=== PATIENT | male | born 1980 | race Caucasian/White ===

== ENCOUNTER 2021-03-19 13:46 | Inpatient (IN) | payer OTHER ==
[2021-03-19] MEDS ORDERED: MAGNESIUM HYDROX 2400MG/30ML ORAL SUSPENSION 30 ML CUP PO PRN (18:07)
[2021-03-19] MEDS ORDERED: IBUPROFEN 400 MG TABLET (FP) PO PRN (18:07)
[2021-03-19] MEDS ORDERED: BISMUTH SUBSALICYLATE 524 MG/30 ML PO PRN (18:07)
[2021-03-19] MEDS ORDERED: ACETAMINOPHEN 325 MG TABLET (FP) PO PRN ×2 (18:07)
[2021-03-19] MEDS ORDERED: METHOCARBAMOL 500 MG TABLET PO PRN (18:07)
[2021-03-19] MEDS ORDERED: hydrOXYzine PAMOATE 25 MG CAPSULE (FP) PO PRN (18:07)
[2021-03-19] MEDS ORDERED: MAG HYDROX/AL HYDROX/SIMETH 30 ML UNIT-DOSE CUP PO PRN (18:07)
[2021-03-19] MEDS ORDERED: MAGNESIUM CITRATE 300 ML BOTTLE PO PRN (18:07)
[2021-03-19] MEDS ORDERED: MENTHOL/PHENOL 1 EACH UD MM PRN (18:07)
[2021-03-19] MEDS ORDERED: ONDANSETRON *ODT* 4 MG TABLET SL PRN (18:07)
[2021-03-19] MEDS ORDERED: LORazepam 2 MG TABLET PO ONE (19:30)
[2021-03-19 19:53] VITALS: BMI 20.9
[2021-03-19] MEDS: LORazepam 2 MG TABLET PO SCH (22:22)
[2021-03-19] MEDS: THIAMINE HCL 100 MG TABLET (FP) PO SCH (22:22)
[2021-03-19] MEDS: MELATONIN 5 MG TABLETS PO SCH (22:22)
[2021-03-20] MEDS: LORazepam 2 MG TABLET PO SCH ×4 (05:36→22:16)
[2021-03-20] MEDS ORDERED: methaDONE HCL 40 MG DISPERSABLE TABLET PO ONE (06:00)
[2021-03-20] MEDS: NICOTINE 14 MG/24 HOURS TOPICAL PATCH TD SCH (10:35)
[2021-03-20] MEDS: PRENATAL VITAMINS W/ FOLIC ACID TABLET (FP) PO SCH (10:35)
[2021-03-20] MEDS: NICOTINE POLACRILEX 2 MG GUM BUC PRN (10:38)
[2021-03-20 11:09] LABS: CALCIUM 8.4 mg/dL (8.5-10.1)
[2021-03-20 11:10] LABS: ALBUMIN 3.3 g/dl (3.4-5.0); BLOOD UREA NITROGEN 9.4 mg/dL (7-18)
[2021-03-20 11:11] LABS: HEMATOCRIT 41.3 % (35.4-49); HEMOGLOBIN 13.5 GM/dL (11.7-16.9); MCH 27.8 pg (25.7-33.7); MCHC 32.8 g/dl (32.0-35.9); MEAN CELL VOLUME 84.7 fl (80-96); MEAN PLT VOLUME 8.3 fl (7.5-11.1); PLATELET COUNT 223 10^3/uL (134-434); RBC 4.87 M/mm3 (4.00-5.60); RDW 15.3 % (11.9-15.9); WHITE BLOOD COUNT 3.7 K/mm3 (4.0-10.0)
[2021-03-20 11:13] LABS: CREATININE 0.8 mg/dL (0.55-1.3)
[2021-03-20 11:14] LABS: BILIRUBIN,TOTAL 0.4 mg/dL (0.2-1); TOT PROT 6.5 g/dl (6.4-8.2)
[2021-03-20] MEDS: LORazepam 1 MG TABLET PO PRN (12:35)
[2021-03-20] MEDS: THIAMINE HCL 100 MG TABLET (FP) PO SCH (22:16)
[2021-03-20] MEDS: MELATONIN 5 MG TABLETS PO SCH (22:16)
[2021-03-21] MEDS: LORazepam 1 MG TABLET PO SCH ×4 (06:13→22:33)
[2021-03-21] MEDS ORDERED: methaDONE HCL 10 MG TABLET PO ONE (08:59)
[2021-03-21] MEDS ORDERED: methaDONE HCL 40 MG DISPERSABLE TABLET ONE (09:22)
[2021-03-21] MEDS ORDERED: methaDONE HCL 10 MG TABLET ONE (09:22)
[2021-03-21] MEDS: PRENATAL VITAMINS W/ FOLIC ACID TABLET (FP) PO SCH (10:14)
[2021-03-21] MEDS: NICOTINE 14 MG/24 HOURS TOPICAL PATCH TD SCH (10:14)
[2021-03-21] MEDS: NICOTINE POLACRILEX 2 MG GUM BUC PRN ×2 (10:15→13:23)
[2021-03-21] MEDS ORDERED: COVID-19 VAC,AD26(JANSSEN)/PF 0.5 ML IM ONE (11:00)
[2021-03-21] MEDS: LORazepam 1 MG TABLET PO PRN ×2 (13:23→20:51)
[2021-03-21] MEDS: THIAMINE HCL 100 MG TABLET (FP) PO SCH (22:33)
[2021-03-21] MEDS: MELATONIN 5 MG TABLETS PO SCH (22:33)
[2021-03-22] MEDS ORDERED: methaDONE HCL 10 MG TABLET ONE (04:59)
[2021-03-22] MEDS ORDERED: methaDONE HCL 40 MG DISPERSABLE TABLET ONE (05:00)
[2021-03-22] MEDS: LORazepam 0.5 MG TABLET PO SCH ×4 (05:50→22:10)
[2021-03-22] MEDS: NICOTINE POLACRILEX 2 MG GUM BUC PRN ×2 (05:53→10:24)
[2021-03-22] MEDS ORDERED: methaDONE HCL 40 MG DISPERSABLE TABLET PO SCH (06:00)
[2021-03-22] MEDS: NICOTINE 14 MG/24 HOURS TOPICAL PATCH TD SCH (10:23)
[2021-03-22] MEDS: PRENATAL VITAMINS W/ FOLIC ACID TABLET (FP) PO SCH (10:23)
[2021-03-22] MEDS: LORazepam 0.5 MG TABLET PO PRN ×2 (12:07→19:40)
[2021-03-22] MEDS: MELATONIN 5 MG TABLETS PO SCH (22:10)
[2021-03-22] MEDS: THIAMINE HCL 100 MG TABLET (FP) PO SCH (22:10)
[2021-03-23] MEDS ORDERED: methaDONE HCL 40 MG DISPERSABLE TABLET ONE (04:17)
[2021-03-23] MEDS ORDERED: methaDONE HCL 10 MG TABLET ONE (04:17)
[2021-03-23] MEDS ORDERED: LORazepam 0.5 MG TABLET PO ONE (05:00)
[2021-03-23 09:02] VITALS: BP 91/63; PULSE 79; TEMP 97.1
[2021-03-23] MEDS: PRENATAL VITAMINS W/ FOLIC ACID TABLET (FP) PO SCH (10:30)
[2021-03-23] MEDS: NICOTINE 14 MG/24 HOURS TOPICAL PATCH TD SCH (10:30)
[2021-03-23 10:32] LABS: SGOT/AST 242 U/L (15-37); SGPT/ALT 406 U/L (13-61)
== END 2021-03-23 12:04 | disposition other institution (70) | DRG 773 ==
LOC: YASAS 13:46 → Y3N 19:09
PROVIDERS: ADMIT Allergy & Immunology; ATTEND Allergy & Immunology
PROC: HZ2ZZZZ Detoxification Services for Substance Abuse Treatment (ICD-10-PCS; principal; 2021-03-19)
DX: F13.230 Sedative, hypnotic or anxiolytic dependence with withdrawal, uncomplicated (principal); F11.20 Opioid dependence, uncomplicated; F14.10 Cocaine abuse, uncomplicated; F17.210 Nicotine dependence, cigarettes, uncomplicated; R74.01 Elevation of levels of liver transaminase levels
CPT/HCPCS: 0031A; 36415; 80053; 84450; 84460; 85027; 86780; 91303; 93005; 93010; C9803; U0003; U0005

== ENCOUNTER 2021-03-23 12:13 | Inpatient (IN) | payer OTHER ==
[2021-03-23] MEDS ORDERED: MAGNESIUM HYDROX 2400MG/30ML ORAL SUSPENSION 30 ML CUP PO PRN (13:10)
[2021-03-23] MEDS ORDERED: MENTHOL/PHENOL 1 EACH UD MM PRN (13:10)
[2021-03-23] MEDS ORDERED: MAG HYDROX/AL HYDROX/SIMETH 30 ML UNIT-DOSE CUP PO PRN (13:10)
[2021-03-23] MEDS ORDERED: guaiFENesin 200 MG/10 ML 10 ML UNIT-DOSE CUPS PO PRN (13:10)
[2021-03-23] MEDS ORDERED: IBUPROFEN 400 MG TABLET (FP) PO PRN (13:10)
[2021-03-23] MEDS ORDERED: ACETAMINOPHEN 325 MG TABLET (FP) PO PRN (13:10)
[2021-03-23] MEDS ORDERED: MAGNESIUM CITRATE 300 ML BOTTLE PO PRN (13:10)
[2021-03-23] MEDS ORDERED: LOPERAMIDE HCL 2 MG CAPSULE PO PRN (13:10)
[2021-03-23] MEDS ORDERED: P-EPHED 60MG/TRIPROLIDI 2.5MG TABLET PO PRN (13:10)
[2021-03-23] MEDS: MELATONIN 5 MG TABLETS PO SCH (21:41)
[2021-03-23] MEDS: THIAMINE HCL 100 MG TABLET (FP) PO SCH (21:41)
[2021-03-24] MEDS ORDERED: methaDONE HCL 10 MG TABLET PO SCH (06:00)
[2021-03-24] MEDS ORDERED: methaDONE HCL 10 MG TABLET ONE (06:15)
[2021-03-24] MEDS ORDERED: methaDONE HCL 40 MG DISPERSABLE TABLET ONE (06:15)
[2021-03-24] MEDS: NICOTINE POLACRILEX 2 MG GUM BUC PRN ×2 (08:57→17:14)
[2021-03-24] MEDS: NICOTINE 14 MG/24 HOURS TOPICAL PATCH TD SCH (09:23)
[2021-03-24] MEDS: PRENATAL VITAMINS W/ FOLIC ACID TABLET (FP) PO SCH (09:23)
[2021-03-24] MEDS ORDERED: NICOTINE 7 MG/24 HOURS TOPICAL PATCH TD SCH (10:00)
[2021-03-24] MEDS: THIAMINE HCL 100 MG TABLET (FP) PO SCH (21:32)
[2021-03-24] MEDS: MELATONIN 5 MG TABLETS PO SCH (21:32)
[2021-03-24] MEDS: hydrOXYzine PAMOATE 25 MG CAPSULE (FP) PO PRN (21:32)
[2021-03-25] MEDS ORDERED: methaDONE HCL 10 MG TABLET ONE (06:25)
[2021-03-25] MEDS ORDERED: methaDONE HCL 40 MG DISPERSABLE TABLET ONE (06:26)
[2021-03-25] MEDS: NICOTINE POLACRILEX 2 MG GUM BUC PRN ×2 (06:41→09:44)
[2021-03-25] MEDS: NICOTINE 14 MG/24 HOURS TOPICAL PATCH TD SCH (09:43)
[2021-03-25] MEDS: PRENATAL VITAMINS W/ FOLIC ACID TABLET (FP) PO SCH (09:44)
[2021-03-25] MEDS: hydrOXYzine PAMOATE 25 MG CAPSULE (FP) PO PRN (09:45)
[2021-03-25] MEDS: MELATONIN 5 MG TABLETS PO SCH (23:30)
[2021-03-25] MEDS: THIAMINE HCL 100 MG TABLET (FP) PO SCH (23:30)
[2021-03-26] MEDS ORDERED: methaDONE HCL 10 MG TABLET ONE (05:46)
[2021-03-26] MEDS ORDERED: methaDONE HCL 40 MG DISPERSABLE TABLET ONE (05:47)
[2021-03-26] MEDS: NICOTINE POLACRILEX 2 MG GUM BUC PRN ×3 (06:04→19:04)
[2021-03-26] MEDS: NICOTINE 14 MG/24 HOURS TOPICAL PATCH TD SCH (09:56)
[2021-03-26] MEDS: PRENATAL VITAMINS W/ FOLIC ACID TABLET (FP) PO SCH (09:56)
[2021-03-26] MEDS: MELATONIN 5 MG TABLETS PO SCH (22:49)
[2021-03-26] MEDS: THIAMINE HCL 100 MG TABLET (FP) PO SCH (22:49)
[2021-03-27] MEDS ORDERED: methaDONE HCL 40 MG DISPERSABLE TABLET ONE (03:46)
[2021-03-27] MEDS ORDERED: methaDONE HCL 10 MG TABLET ONE (03:46)
[2021-03-27] MEDS: NICOTINE POLACRILEX 2 MG GUM BUC PRN ×5 (06:15→21:20)
[2021-03-27] MEDS: hydrOXYzine PAMOATE 25 MG CAPSULE (FP) PO PRN ×2 (06:16→17:30)
[2021-03-27] MEDS: NICOTINE 14 MG/24 HOURS TOPICAL PATCH TD SCH (09:45)
[2021-03-27] MEDS: PRENATAL VITAMINS W/ FOLIC ACID TABLET (FP) PO SCH (09:45)
[2021-03-27] MEDS: THIAMINE HCL 100 MG TABLET (FP) PO SCH (21:19)
[2021-03-27] MEDS: MELATONIN 5 MG TABLETS PO SCH (21:19)
[2021-03-28] MEDS ORDERED: methaDONE HCL 10 MG TABLET ONE (03:17)
[2021-03-28] MEDS ORDERED: methaDONE HCL 40 MG DISPERSABLE TABLET ONE (03:18)
[2021-03-28] MEDS: PRENATAL VITAMINS W/ FOLIC ACID TABLET (FP) PO SCH (09:59)
[2021-03-28] MEDS: NICOTINE 14 MG/24 HOURS TOPICAL PATCH TD SCH (09:59)
[2021-03-28] MEDS: hydrOXYzine PAMOATE 25 MG CAPSULE (FP) PO PRN (10:00)
[2021-03-28] MEDS: NICOTINE POLACRILEX 2 MG GUM BUC PRN ×2 (10:01→21:54)
[2021-03-28] MEDS: MELATONIN 5 MG TABLETS PO SCH (21:54)
[2021-03-28] MEDS: THIAMINE HCL 100 MG TABLET (FP) PO SCH (21:54)
[2021-03-29] MEDS ORDERED: methaDONE HCL 10 MG TABLET ONE (03:26)
[2021-03-29] MEDS ORDERED: methaDONE HCL 40 MG DISPERSABLE TABLET ONE (03:27)
[2021-03-29] MEDS: NICOTINE 14 MG/24 HOURS TOPICAL PATCH TD SCH (11:51)
[2021-03-29] MEDS: PRENATAL VITAMINS W/ FOLIC ACID TABLET (FP) PO SCH (11:51)
[2021-03-29] MEDS: hydrOXYzine PAMOATE 25 MG CAPSULE (FP) PO PRN ×2 (13:05→21:49)
[2021-03-29] MEDS: NICOTINE POLACRILEX 2 MG GUM BUC PRN ×3 (13:06→21:48)
[2021-03-29] MEDS: THIAMINE HCL 100 MG TABLET (FP) PO SCH (21:48)
[2021-03-29] MEDS: MELATONIN 5 MG TABLETS PO SCH (21:48)
[2021-03-30] MEDS ORDERED: methaDONE HCL 10 MG TABLET ONE (03:37)
[2021-03-30] MEDS ORDERED: methaDONE HCL 40 MG DISPERSABLE TABLET ONE (03:37)
[2021-03-30] MEDS: PRENATAL VITAMINS W/ FOLIC ACID TABLET (FP) PO SCH (09:34)
[2021-03-30] MEDS: hydrOXYzine PAMOATE 25 MG CAPSULE (FP) PO PRN (09:35)
[2021-03-30] MEDS: NICOTINE POLACRILEX 2 MG GUM BUC PRN ×2 (09:36→14:16)
[2021-03-30] MEDS: NICOTINE 14 MG/24 HOURS TOPICAL PATCH TD SCH (09:36)
[2021-03-30] MEDS: MELATONIN 5 MG TABLETS PO SCH (22:36)
[2021-03-30] MEDS: THIAMINE HCL 100 MG TABLET (FP) PO SCH (22:37)
[2021-03-31] MEDS ORDERED: methaDONE HCL 40 MG DISPERSABLE TABLET ONE (06:08)
[2021-03-31] MEDS ORDERED: methaDONE HCL 10 MG TABLET ONE (06:08)
[2021-03-31 06:57] VITALS: BP 120/68; PULSE 57; TEMP 97.1
[2021-03-31] MEDS: NICOTINE POLACRILEX 2 MG GUM BUC PRN (08:07)
[2021-03-31] MEDS: NICOTINE 14 MG/24 HOURS TOPICAL PATCH TD SCH (09:22)
[2021-03-31] MEDS: PRENATAL VITAMINS W/ FOLIC ACID TABLET (FP) PO SCH (09:22)
== END 2021-03-31 09:30 | disposition home or self-care (01) | DRG 772 ==
LOC: YASAS 12:13 → Y3E 12:14
PROVIDERS: ADMIT Allergy & Immunology; ATTEND Allergy & Immunology
PROC: HZ42ZZZ Group Counseling for Substance Abuse Treatment, Cognitive-Behavioral (ICD-10-PCS; principal; 2021-03-23)
DX: F11.20 Opioid dependence, uncomplicated (principal); F14.20 Cocaine dependence, uncomplicated; F13.20 Sedative, hypnotic or anxiolytic dependence, uncomplicated; F17.210 Nicotine dependence, cigarettes, uncomplicated; F41.9 Anxiety disorder, unspecified

== ENCOUNTER 2021-08-15 16:45 | Inpatient (IN) | payer OTHER ==
[2021-08-15 18:39] VITALS: BMI 25.9
[2021-08-15] MEDS ORDERED: BISMUTH SUBSALICYLATE 524 MG/30 ML PO PRN (20:21)
[2021-08-15] MEDS ORDERED: MAGNESIUM CITRATE 300 ML BOTTLE PO PRN (20:21)
[2021-08-15] MEDS ORDERED: MAGNESIUM HYDROX 2400MG/30ML ORAL SUSPENSION 30 ML CUP PO PRN (20:21)
[2021-08-15] MEDS ORDERED: MAG HYDROX/AL HYDROX/SIMETH 30 ML UNIT-DOSE CUP PO PRN (20:21)
[2021-08-15] MEDS ORDERED: NICOTINE 10 MG CARTRIDGE (INHALER) IH PRN (20:21)
[2021-08-15] MEDS ORDERED: ACETAMINOPHEN 325 MG TABLET (FP) PO PRN ×2 (20:21)
[2021-08-15] MEDS ORDERED: METHOCARBAMOL 500 MG TABLET PO PRN (20:21)
[2021-08-15] MEDS ORDERED: MENTHOL/PHENOL 1 EACH UD MM PRN (20:21)
[2021-08-15] MEDS ORDERED: ONDANSETRON *ODT* 4 MG TABLET SL PRN (20:21)
[2021-08-15] MEDS ORDERED: IBUPROFEN 400 MG TABLET (FP) PO PRN (20:21)
[2021-08-15] MEDS: THIAMINE HCL 100 MG TABLET (FP) PO SCH (23:09)
[2021-08-15] MEDS: BACITRACIN 0.9 GM PACKET TP SCH (23:09)
[2021-08-15] MEDS: MELATONIN 5 MG TABLETS PO SCH (23:09)
[2021-08-16] MEDS: diazePAM 5 MG TABLET PO PRN (07:40)
[2021-08-16] MEDS ORDERED: diazePAM 5 MG TABLET PO PRN (09:28)
[2021-08-16] MEDS: methaDONE HCL 40 MG DISPERSABLE TABLET PO SCH (10:26)
[2021-08-16] MEDS: BACITRACIN 0.9 GM PACKET TP SCH ×2 (10:26→23:05)
[2021-08-16] MEDS: PRENATAL VITAMINS W/ FOLIC ACID TABLET (FP) PO SCH (10:26)
[2021-08-16] MEDS: diazePAM 5 MG TABLET PO SCH ×3 (10:27→23:05)
[2021-08-16 10:36] LABS: ALBUMIN 3.6 g/dl (3.4-5.0); BLOOD UREA NITROGEN 13.3 mg/dL (7-18); CALCIUM 8.9 mg/dL (8.5-10.1); HEMATOCRIT 40.4 % (35.4-49); HEMOGLOBIN 13.8 GM/dL (11.7-16.9); MCH 29.9 pg (25.7-33.7); MCHC 34.3 g/dl (32.0-35.9); MEAN CELL VOLUME 87.1 fl (80-96); MEAN PLT VOLUME 8.5 fl (7.5-11.1); PLATELET COUNT 223 10^3/uL (134-434); RBC 4.63 M/mm3 (4.00-5.60); RDW 13.4 % (11.9-15.9); WHITE BLOOD COUNT 4.6 K/mm3 (4.0-10.0)
[2021-08-16 10:39] LABS: CREATININE 0.7 mg/dL (0.55-1.3)
[2021-08-16 10:41] LABS: BILIRUBIN,TOTAL 0.5 mg/dL (0.2-1)
[2021-08-16] MEDS: THIAMINE HCL 100 MG TABLET (FP) PO SCH (23:05)
[2021-08-16] MEDS: MELATONIN 5 MG TABLETS PO SCH (23:05)
[2021-08-17] MEDS: methaDONE HCL 40 MG DISPERSABLE TABLET PO SCH (05:38)
[2021-08-17] MEDS: diazePAM 5 MG TABLET PO SCH ×4 (05:38→22:02)
[2021-08-17] MEDS: PRENATAL VITAMINS W/ FOLIC ACID TABLET (FP) PO SCH (10:11)
[2021-08-17] MEDS: BACITRACIN 0.9 GM PACKET TP SCH ×2 (10:12→22:03)
[2021-08-17] MEDS: THIAMINE HCL 100 MG TABLET (FP) PO SCH (22:02)
[2021-08-17] MEDS: MELATONIN 5 MG TABLETS PO SCH (22:03)
[2021-08-18] MEDS: methaDONE HCL 40 MG DISPERSABLE TABLET PO SCH (05:32)
[2021-08-18] MEDS: diazePAM 5 MG TABLET PO SCH ×3 (05:33→22:17)
[2021-08-18] MEDS: BACITRACIN 0.9 GM PACKET TP SCH ×2 (09:07→22:18)
[2021-08-18] MEDS: PRENATAL VITAMINS W/ FOLIC ACID TABLET (FP) PO SCH (09:07)
[2021-08-18] MEDS: diazePAM 5 MG TABLET PO PRN ×2 (09:07→17:28)
[2021-08-18] MEDS: NICOTINE POLACRILEX 2 MG GUM BUC PRN (10:40)
[2021-08-18] MEDS: MELATONIN 5 MG TABLETS PO SCH (22:18)
[2021-08-18] MEDS: THIAMINE HCL 100 MG TABLET (FP) PO SCH (22:18)
[2021-08-19] MEDS: methaDONE HCL 40 MG DISPERSABLE TABLET PO SCH (05:33)
[2021-08-19] MEDS: diazePAM 5 MG TABLET PO SCH ×2 (05:33→17:58)
[2021-08-19] MEDS: NICOTINE POLACRILEX 2 MG GUM BUC PRN ×3 (05:35→22:25)
[2021-08-19] MEDS: BACITRACIN 0.9 GM PACKET TP SCH ×2 (10:37→22:22)
[2021-08-19] MEDS: PRENATAL VITAMINS W/ FOLIC ACID TABLET (FP) PO SCH (10:37)
[2021-08-19] MEDS: THIAMINE HCL 100 MG TABLET (FP) PO SCH (22:22)
[2021-08-19] MEDS: MELATONIN 5 MG TABLETS PO SCH ×2 (22:22→22:25)
[2021-08-20] MEDS: diazePAM 5 MG TABLET PO SCH ×2 (05:27→17:44)
[2021-08-20] MEDS: methaDONE HCL 40 MG DISPERSABLE TABLET PO SCH (05:27)
[2021-08-20] MEDS: NICOTINE POLACRILEX 2 MG GUM BUC PRN (10:16)
[2021-08-20] MEDS: PRENATAL VITAMINS W/ FOLIC ACID TABLET (FP) PO SCH (10:16)
[2021-08-20] MEDS: BACITRACIN 0.9 GM PACKET TP SCH ×2 (10:16→22:23)
[2021-08-20] MEDS: hydrOXYzine PAMOATE 25 MG CAPSULE (FP) PO PRN (10:17)
[2021-08-20] MEDS: THIAMINE HCL 100 MG TABLET (FP) PO SCH (22:23)
[2021-08-20] MEDS: MELATONIN 5 MG TABLETS PO SCH (22:23)
[2021-08-21] MEDS: methaDONE HCL 40 MG DISPERSABLE TABLET PO SCH (05:43)
[2021-08-21] MEDS: hydrOXYzine PAMOATE 25 MG CAPSULE (FP) PO PRN ×2 (05:45→10:08)
[2021-08-21] MEDS: BACITRACIN 0.9 GM PACKET TP SCH (10:07)
[2021-08-21] MEDS: NICOTINE POLACRILEX 2 MG GUM BUC PRN (10:07)
[2021-08-21] MEDS: PRENATAL VITAMINS W/ FOLIC ACID TABLET (FP) PO SCH (10:07)
[2021-08-21 18:41] VITALS: BP 134/63; PULSE 56; TEMP 98.9
[2021-08-22] MEDS ORDERED: diazePAM 5 MG TABLET PO ONE (06:00)
== END 2021-08-21 20:00 | disposition other institution (70) | DRG 773 ==
LOC: YASAS 16:45 → Y3N 20:46 → Y5N 08-21 09:21 → Y3N 08-21 10:01
PROVIDERS: ADMIT Allergy & Immunology; ATTEND Allergy & Immunology
PROC: HZ2ZZZZ Detoxification Services for Substance Abuse Treatment (ICD-10-PCS; principal; 2021-08-15)
DX: F13.230 Sedative, hypnotic or anxiolytic dependence with withdrawal, uncomplicated (principal); F11.20 Opioid dependence, uncomplicated; F14.20 Cocaine dependence, uncomplicated; F17.210 Nicotine dependence, cigarettes, uncomplicated; Z56.0 Unemployment, unspecified; Z59.00 Homelessness unspecified
CPT/HCPCS: 36415; 80053; 85027; 86780; C9803; U0003; U0005

== ENCOUNTER 2021-08-21 20:17 | Inpatient (IN) | payer OTHER ==
[2021-08-21] MEDS ORDERED: MENTHOL/PHENOL 1 EACH UD MM PRN (22:02)
[2021-08-21] MEDS ORDERED: MAGNESIUM HYDROX 2400MG/30ML ORAL SUSPENSION 30 ML CUP PO PRN (22:02)
[2021-08-21] MEDS ORDERED: MAGNESIUM CITRATE 300 ML BOTTLE PO PRN (22:02)
[2021-08-21] MEDS ORDERED: guaiFENesin 200 MG/10 ML 10 ML UNIT-DOSE CUPS PO PRN (22:02)
[2021-08-21] MEDS ORDERED: LOPERAMIDE HCL 2 MG CAPSULE PO PRN (22:02)
[2021-08-21] MEDS ORDERED: P-EPHED 60MG/TRIPROLIDI 2.5MG TABLET PO PRN (22:02)
[2021-08-21] MEDS ORDERED: IBUPROFEN 400 MG TABLET (FP) PO PRN (22:02)
[2021-08-21] MEDS ORDERED: ACETAMINOPHEN 325 MG TABLET (FP) PO PRN (22:02)
[2021-08-21] MEDS ORDERED: MAG HYDROX/AL HYDROX/SIMETH 30 ML UNIT-DOSE CUP PO PRN (22:02)
[2021-08-21] MEDS: MELATONIN 5 MG TABLETS PO SCH (22:20)
[2021-08-22] MEDS: hydrOXYzine PAMOATE 25 MG CAPSULE (FP) PO SCH ×5 (06:40→21:36)
[2021-08-22] MEDS: PRENATAL VITAMINS W/ FOLIC ACID TABLET (FP) PO SCH (09:39)
[2021-08-22] MEDS: NICOTINE 10 MG CARTRIDGE (INHALER) IH PRN ×3 (09:41→21:36)
[2021-08-22] MEDS ORDERED: methaDONE HCL 40 MG DISPERSABLE TABLET PO ONE (10:49)
[2021-08-22 12:10] LABS: HIV INTERPRETATION NEGATIVE (NEGATIVE)
[2021-08-22] MEDS: MELATONIN 5 MG TABLETS PO SCH (21:36)
[2021-08-22] MEDS: THIAMINE HCL 100 MG TABLET (FP) PO SCH (23:32)
[2021-08-23] MEDS: hydrOXYzine PAMOATE 25 MG CAPSULE (FP) PO SCH ×5 (06:35→23:09)
[2021-08-23] MEDS: methaDONE HCL 40 MG DISPERSABLE TABLET PO SCH (06:35)
[2021-08-23] MEDS: PRENATAL VITAMINS W/ FOLIC ACID TABLET (FP) PO SCH (09:15)
[2021-08-23] MEDS: THIAMINE HCL 100 MG TABLET (FP) PO SCH (23:05)
[2021-08-23] MEDS: MELATONIN 5 MG TABLETS PO SCH (23:05)
[2021-08-23] MEDS ORDERED: TRIMETHOBENZAMIDE HCL 200MG/2ML INJ IM ONE (23:07)
[2021-08-24] MEDS: methaDONE HCL 40 MG DISPERSABLE TABLET PO SCH (06:56)
[2021-08-24] MEDS: hydrOXYzine PAMOATE 25 MG CAPSULE (FP) PO SCH (06:57)
[2021-08-24] MEDS: hydrOXYzine PAMOATE 25 MG CAPSULE (FP) PO PRN (10:52)
[2021-08-24] MEDS: PRENATAL VITAMINS W/ FOLIC ACID TABLET (FP) PO SCH (10:52)
[2021-08-24] MEDS: MELATONIN 5 MG TABLETS PO SCH (22:58)
[2021-08-24] MEDS: THIAMINE HCL 100 MG TABLET (FP) PO SCH (22:59)
[2021-08-25] MEDS: methaDONE HCL 40 MG DISPERSABLE TABLET PO SCH (06:25)
[2021-08-25] MEDS: ONDANSETRON *ODT* 4 MG TABLET SL PRN ×2 (06:27→12:55)
[2021-08-25] MEDS: PRENATAL VITAMINS W/ FOLIC ACID TABLET (FP) PO SCH (10:06)
[2021-08-25] MEDS: hydrOXYzine PAMOATE 25 MG CAPSULE (FP) PO PRN ×2 (10:07→21:34)
[2021-08-25] MEDS: MELATONIN 5 MG TABLETS PO SCH (21:34)
[2021-08-25] MEDS: THIAMINE HCL 100 MG TABLET (FP) PO SCH (21:34)
[2021-08-26] MEDS: methaDONE HCL 40 MG DISPERSABLE TABLET PO SCH (06:21)
[2021-08-26] MEDS: PRENATAL VITAMINS W/ FOLIC ACID TABLET (FP) PO SCH (10:18)
[2021-08-26] MEDS: hydrOXYzine PAMOATE 25 MG CAPSULE (FP) PO PRN ×2 (10:20→21:23)
[2021-08-26] MEDS: THIAMINE HCL 100 MG TABLET (FP) PO SCH (21:23)
[2021-08-26] MEDS: MELATONIN 5 MG TABLETS PO SCH (21:23)
[2021-08-26] MEDS: ONDANSETRON *ODT* 4 MG TABLET SL PRN (21:25)
[2021-08-27] MEDS: methaDONE HCL 40 MG DISPERSABLE TABLET PO SCH (06:35)
[2021-08-27] MEDS: hydrOXYzine PAMOATE 25 MG CAPSULE (FP) PO PRN ×3 (06:35→21:23)
[2021-08-27] MEDS: PRENATAL VITAMINS W/ FOLIC ACID TABLET (FP) PO SCH (10:16)
[2021-08-27] MEDS: MELATONIN 5 MG TABLETS PO SCH (21:23)
[2021-08-27] MEDS: THIAMINE HCL 100 MG TABLET (FP) PO SCH (21:23)
[2021-08-27] MEDS: ONDANSETRON *ODT* 4 MG TABLET SL PRN (21:25)
[2021-08-28] MEDS: methaDONE HCL 40 MG DISPERSABLE TABLET PO SCH (06:28)
[2021-08-28] MEDS: hydrOXYzine PAMOATE 25 MG CAPSULE (FP) PO PRN ×3 (06:29→21:26)
[2021-08-28] MEDS: PRENATAL VITAMINS W/ FOLIC ACID TABLET (FP) PO SCH (10:18)
[2021-08-28] MEDS: THIAMINE HCL 100 MG TABLET (FP) PO SCH (21:26)
[2021-08-28] MEDS: MELATONIN 5 MG TABLETS PO SCH (21:26)
[2021-08-28] MEDS: ONDANSETRON *ODT* 4 MG TABLET SL PRN (21:27)
[2021-08-29] MEDS: methaDONE HCL 40 MG DISPERSABLE TABLET PO SCH (06:20)
[2021-08-29] MEDS: hydrOXYzine PAMOATE 25 MG CAPSULE (FP) PO PRN ×2 (06:21→10:33)
[2021-08-29] MEDS: PRENATAL VITAMINS W/ FOLIC ACID TABLET (FP) PO SCH (10:34)
[2021-08-29] MEDS: THIAMINE HCL 100 MG TABLET (FP) PO SCH (22:05)
[2021-08-29] MEDS: MELATONIN 5 MG TABLETS PO SCH (22:05)
[2021-08-30] MEDS: methaDONE HCL 40 MG DISPERSABLE TABLET PO SCH (06:26)
[2021-08-30] MEDS: NICOTINE 10 MG CARTRIDGE (INHALER) IH PRN (06:27)
[2021-08-30] MEDS: hydrOXYzine PAMOATE 25 MG CAPSULE (FP) PO PRN ×3 (06:27→21:26)
[2021-08-30] MEDS: PRENATAL VITAMINS W/ FOLIC ACID TABLET (FP) PO SCH (10:32)
[2021-08-30] MEDS: THIAMINE HCL 100 MG TABLET (FP) PO SCH (21:26)
[2021-08-30] MEDS: MELATONIN 5 MG TABLETS PO SCH (21:26)
[2021-08-31] MEDS: methaDONE HCL 40 MG DISPERSABLE TABLET PO SCH (06:14)
[2021-08-31] MEDS: hydrOXYzine PAMOATE 25 MG CAPSULE (FP) PO PRN ×3 (06:15→21:33)
[2021-08-31] MEDS: PRENATAL VITAMINS W/ FOLIC ACID TABLET (FP) PO SCH (10:26)
[2021-08-31] MEDS: THIAMINE HCL 100 MG TABLET (FP) PO SCH (21:32)
[2021-08-31] MEDS: MELATONIN 5 MG TABLETS PO SCH (21:32)
[2021-09-01] MEDS: hydrOXYzine PAMOATE 25 MG CAPSULE (FP) PO PRN (06:04)
[2021-09-01] MEDS: methaDONE HCL 40 MG DISPERSABLE TABLET PO SCH (06:04)
[2021-09-01 07:22] VITALS: BP 131/82; PULSE 54; TEMP 97.2
[2021-09-01] MEDS: PRENATAL VITAMINS W/ FOLIC ACID TABLET (FP) PO SCH (10:45)
== END 2021-09-01 10:55 | disposition home or self-care (01) | DRG 772 ==
LOC: YASAS 20:17 → Y5N 20:18
PROVIDERS: ADMIT Allergy & Immunology; ATTEND Allergy & Immunology
PROC: HZ42ZZZ Group Counseling for Substance Abuse Treatment, Cognitive-Behavioral (ICD-10-PCS; principal; 2021-08-21)
DX: F13.20 Sedative, hypnotic or anxiolytic dependence, uncomplicated (principal); F11.20 Opioid dependence, uncomplicated; F14.20 Cocaine dependence, uncomplicated; F17.210 Nicotine dependence, cigarettes, uncomplicated
CPT/HCPCS: 36415; 87389; 87811; C9803; Q0162; U0003; U0005